=== PATIENT | male | born 1995 | race Caucasian/White ===

== ENCOUNTER 2019-08-14 21:04 | Emergency (ER) | payer OTHER ==
--- NOTE | 2019-08-14 21:13 | PDOC ---
Rapid Medical Evaluation Chief Complaint: Edema Time Seen by Provider: 08/14/19 21:12 Medical Evaluation: Allergies Allergy/AdvReac Type Severity Reaction Status Date / Time No Known Allergies Allergy Verified 08/14/19 21:09 08/14/19 21:12 I have performed a brief in-person evaluation of this patient. The patient presents with a chief complaint of: hand swelling Pertinent physical exam findings:stable and in NAD, non-focal I have ordered the following:n/a The patient will proceed to the ED for further evaluation.
[2019-08-14 21:14] VITALS: BP 122/79; PULSE 101; TEMP 98.3; BMI 21.4
== END 2019-08-14 22:30 | disposition left against medical advice (07) ==
LOC: JERFT 21:04
DX: M79.89 Other specified soft tissue disorders (principal)
CPT/HCPCS: 99281-25

== ENCOUNTER 2019-08-21 11:32 | Emergency (ER) | payer OTHER ==
[2019-08-21 12:03] VITALS: BP 125/78; PULSE 98; TEMP 97.9; BMI 20.7
--- NOTE | 2019-08-21 12:48 | PDOC ---
History of Present Illness - General Chief Complaint: Pain, Acute Stated Complaint: LT HAND PAIN Time Seen by Provider: 08/21/19 12:19 History Source: Patient Exam Limitations: No Limitations Past History - Past Medical History Allergies/Adverse Reactions: Allergies Allergy/AdvReac Type Severity Reaction Status Date / Time No Known Allergies Allergy Verified 08/21/19 12:00 Home Medications: Ambulatory Orders Triamcinolone 0.025% Ointment [Aristocort 0.025% Ointment -] 1 applic TP BID #1 tube 08/21/19 COPD: No - Immunization History Immunization Up to Date: Yes - Psycho Social/Smoking Cessation Hx Smoking History: Never smoked Hx Alcohol Use: No Drug/Substance Use Hx: No *Physical Exam - Vital Signs Last Vital Signs Temp Pulse Resp BP Pulse Ox 97.9 F 98 H 18 125/78 100 08/21/19 12:00 08/21/19 12:00 08/21/19 12:00 08/21/19 12:00 08/21/19 12:00 - Physical Exam General Appearance: No: Apparent Distress Integumentary: positive: Erythema, Other (redness and dryness along dorsal aspect of B/L hands, palmar aspects of hands unremarkable, no lesions, no open wounds, no drainage). negative: Jaundice, Mottled, Moist, Hives, Petechiae, Ecchymosis, Bruising Neurologic: positive: Alert Medical Decision Making - Medical Decision Making 23 y/o M with no sig pmh presents with B/L hands redness and itching x 2 weeks. Denies having this problem before. Saw his PCP, Dr. Isbell, on 08/03 and got Keflex 500 mg TID x 1 week and topical hydrocortisone cream (applied BID) x 2 weeks, but not noticing improvement. Also went to urgent care 2 weeks ago where he states they did xrays but found nothing. Denies applying any new products on skin; does not work with any kind of chemicals. Denies rash anywhere else on body. Denies fever, sob, cp, abd pain, n/v/d. Appears as possible atopic dermatitis Will try Triamcinolone steroid and refer to dermatology 08/21/19 12:43 Discharge - Discharge Information Problems reviewed: Yes Clinical Impression/Diagnosis: Atopic dermatitis Qualifiers: Atopic dermatitis type: unspecified Qualified Code(s): L20.9 - Atopic dermatitis, unspecified Condition: Stable Disposition: HOME - Admission No - Additional Discharge Information Prescriptions: Triamcinolone 0.025% Ointment [Aristocort 0.025% Ointment -] 1 applic TP BID #1 tube Prescription Drug Monitoring Program (I-STOP) results: I-STOP not reviewed - Follow up/Referral Referrals: Aurora Tineo MD [Primary Care Provider] - Allison Yang MD [Staff Physician] - 2 Days - Patient Discharge Instructions Patient Printed Discharge Instructions: DI for Atopic Dermatitis - Adult Additional Instructions: Thank you for choosing [facility]. It was a pleasure taking care of you. Apply cream as directed Use of aquaphor ointment may also help Avoid alcohol or use of drying agents (like excessive soap use) You were referred to chief of party for further evaluation Return to the Emergency Department if your symptoms worsen or persist or have other concerning symptoms. - Post Discharge Activity
== END 2019-08-21 12:55 | disposition home or self-care (01) ==
LOC: JERFT 11:32
DX: L20.9 Atopic dermatitis, unspecified (principal)
CPT/HCPCS: 99281-25